=== PATIENT | male | born 1930 | race Caucasian/White ===

== ENCOUNTER → 2016-12-12 | Outpatient (CLI) | payer OTHER, BC ==
--- NOTE | 2016-12-12 14:29 | DX ---
Chest, PA and Lateral History: Upper respiratory tract infection, J06.9, J45.909 Comparison: None Findings: There is bronchial wall thickening without focal infiltrate, pleural effusion or consolidat ion. Heart size and pulmonary vascularity are normal. Overall lung volumes are moderately prominent a nd associated with sparse peripheral vascularity suggesting underlying emphysema or airways disease. A loop recorder overlies the left chest. There is atherosclerotic calcification of the aortic arch. T he descending thoracic aorta is mildly tortuous. 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 There is degenerative and remote posttraumatic change in the low thoracic and upper lumbar spine. Impression: No pneumonia. Consistent with airways disease.
== END ==
LOC: CIMAGING 13:05
PROVIDERS: ATTEND Family Medicine
DX: J06.9 Acute upper respiratory infection, unspecified (principal); J45.909 Unspecified asthma, uncomplicated
CPT/HCPCS: 71020-PO

== ENCOUNTER → 2018-11-23 | Outpatient (CLI) | payer OTHER, BC | LOC: BHFA 09:00 | PROVIDERS: ATTEND Internal Medicine Interventional Cardiology | DX: R55 Syncope and collapse (principal) | CPT/HCPCS: 78452; 93017; A9500; J2785 ==

== ENCOUNTER → 2018-12-14 | Outpatient (CLI) | payer OTHER, BC | LOC: BHCLAF 09:15 | PROVIDERS: ATTEND Internal Medicine Cardiovascular Disease | DX: R55 Syncope and collapse (principal) | CPT/HCPCS: 93306-PO ==